=== PATIENT | female | born 1985 | race Caucasian/White ===

== ENCOUNTER 2022-10-30 11:02 | Emergency (ER) | payer OTHER ==
[2022-10-30 11:15] VITALS: BP 125/82; PULSE 78; RESP 18; TEMP 98.5; BMI 31.5
[2022-10-30] MEDS ORDERED: KETOROLAC TROMETHAMINE 30 MG/1 ML VIAL IM ONE (12:13)
[2022-10-30] MEDS ORDERED: ACETAMINOPHEN 325 MG TABLET (FP) PO ONE (12:13)
[2022-10-30] MEDS ORDERED: ACETAMINOPHEN 500 MG TABLET (FP) ONE (12:23)
[2022-10-30] MEDS ORDERED: ACETAMINOPHEN 325 MG TABLET (FP) ONE (12:23)
[2022-10-30] MEDS ORDERED: KETOROLAC TROMETHAMINE 30 MG/1 ML VIAL ONE (12:23)
== END 2022-10-30 15:26 | disposition home or self-care (01) ==
LOC: JER 11:02
PROC: 3E0233Z Introduction of Anti-inflammatory into Muscle, Percutaneous Approach (ICD-10-PCS; principal; 2022-10-30)
DX: M79.662 Pain in left lower leg (principal); M79.661 Pain in right lower leg
CPT/HCPCS: 93970-TC; 99284-25

== ENCOUNTER → 2023-09-26 | Emergency (ER) | payer OTHER ==
[~2023-09-26] MED LIST: ACETAMINOPHEN INJECTION 100 ML IVPB ONE; DEXAMETHASONE SOD PHOSPHATE 10 MG/1 ML VIAL ONE; KETOROLAC TROMETHAMINE 30 MG/1 ML VIAL ONE; METOCLOPRAMIDE HCL INJECTION 10 MG/2 ML VIAL ONE
[2023-09-26 10:47] VITALS: BP 112/74; PULSE 76; RESP 16; TEMP 98.6; BMI 25.9
[2023-09-26] MEDS: ACETAMINOPHEN 1000 MG/100 ML BAG IVPB ONE (11:30)
[2023-09-26] MEDS: SODIUM CHLORIDE 0.9% 500 ML INFUS.BAG IV ONE (11:30)
[2023-09-26] MEDS: KETOROLAC TROMETHAMINE 30 MG/1 ML VIAL IVPUSH ONE (11:35)
[2023-09-26 11:42] LABS: BASO % 0.7 % (0-2.0); HEMATOCRIT 39.8 % (32.4-45.2); HEMOGLOBIN 13.3 GM/dL (10.7-15.3); LYMPH % 26.7 % (8-40); MCH 27.8 pg (25.7-33.7); MCHC 33.4 g/dl (32.0-36.0); MEAN CELL VOLUME 83.1 fl (80-96); MEAN PLT VOLUME 7.3 fl (7.5-11.1); MONO % 5.3 % (3.8-10.2); NEUT % 66.3 % (42.8-82.8); PLATELET COUNT 470 10^3/uL (134-434); RBC 4.78 M/mm3 (3.60-5.2); RDW 13.4 % (11.6-15.6); WHITE BLOOD COUNT 8.6 K/mm3 (4.0-10.0)
[2023-09-26] MEDS: METOCLOPRAMIDE HCL INJECTION 10 MG/2 ML VIAL IVPUSH ONE (11:47)
[2023-09-26 12:06] LABS: POTASSIUM 4.6 mmol/L (3.5-5.1)
[2023-09-26 12:08] LABS: CALCIUM 9.5 mg/dL (8.5-10.1)
[2023-09-26 12:09] LABS: ALBUMIN 3.2 g/dl (3.4-5.0); BLOOD UREA NITROGEN 11.1 mg/dL (7-18)
[2023-09-26 12:12] LABS: CREATININE 0.9 mg/dL (0.55-1.3)
[2023-09-26 12:13] LABS: BILIRUBIN,TOTAL 0.5 mg/dL (0.2-1); TOT PROT 7.8 g/dl (6.4-8.2)
[2023-09-26] MEDS: DEXAMETHASONE SOD PHOSPHATE 10 MG/1 ML VIAL IVPUSH ONE (14:30)
== END | disposition home or self-care (01) ==
LOC: JER 10:29 → JERFT 10:29
PROC: 3E033GC Introduction of Other Therapeutic Substance into Peripheral Vein, Percutaneous Approach (ICD-10-PCS; principal; 2023-09-26)
PROC: 3E033GC Introduction of Other Therapeutic Substance into Peripheral Vein, Percutaneous Approach (ICD-10-PCS; 2023-09-26)
PROC: 3E033NZ Introduction of Analgesics, Hypnotics, Sedatives into Peripheral Vein, Percutaneous Approach (ICD-10-PCS; 2023-09-26)
PROC: 3E0333Z Introduction of Anti-inflammatory into Peripheral Vein, Percutaneous Approach (ICD-10-PCS; 2023-09-26)
DX: G43.901 Migraine, unspecified, not intractable, with status migrainosus (principal); R42 Dizziness and giddiness; J01.30 Acute sphenoidal sinusitis, unspecified
CPT/HCPCS: 36415; 70450-TC; 80053; 84703; 85025; 99284-25; J0131; J1100